=== PATIENT | male | born 1990 | race Caucasian/White ===

== ENCOUNTER 2018-01-31 19:27 | Emergency (ER) | payer SELFPAY ==
[~2018-01-31] VITALS: Ht 190.5 cm; Wt 122.5 kg
[~2018-01-31 19:27] MED LIST: FLEXERIL10 MG PO
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
--- NOTE | 2018-01-31 21:44 | CT SCAN REPORT ---
EXAMINATIONS: CT HEAD WITHOUT CONTRAST AND CT CERVICAL SPINE WITHOUT CONTRAST CLINICAL INFORMATION: Head and neck pain COMPARISON: None. TECHNIQUE: Contiguous helical images of the brain were obtained without IV contrast. Contiguous helical images of the cervical spine were obtained without IV contrast. Multiplanar reconstructions were performed. DLP: 1063 mGy-cm FINDINGS: There are no pathologic extra-axial fluid collections. The lateral, third, fourth ventricles are nondilated and concordant with the appearance of the sulci. There is no evidence for acute intraparenchymal hemorrhage or infarct. There is neither mass nor mass effect. There is no shift of midline structures. The paranasal sinuses and mastoid air cells are clear. There are no osseous lesions. The cervical vertebra are in normal alignment. Disc heights and vertebral heights are well-preserved. There are no fractures. There is no prevertebral soft tissue swelling. Normal thyroid gland. The visualized lung apices are clear. IMPRESSION: No evidence for acute intracranial injury. No evidence for acute injury to the cervical spine.
[2018-01-31 22:02] VITALS: BP 131/84
== END 2018-01-31 22:53 | disposition short-term general hospital (02) ==
LOC: ERH 19:27
DX: S16.1XXA Strain of muscle, fascia and tendon at neck level, initial encounter (principal); M62.81 Muscle weakness (generalized); R20.2 Paresthesia of skin; V43.52XA Car driver injured in collision with other type car in traffic accident, initial encounter; Y92.411 Interstate highway as the place of occurrence of the external cause